=== PATIENT | male | born 1965 | race Caucasian/White ===

== ENCOUNTER 2018-01-09 12:58 | Emergency (ER) | END 2018-01-09 15:54 | disposition home or self-care (01) ==

== ENCOUNTER 2018-03-25 01:35 | Emergency (ER) | END 2018-03-25 05:41 | disposition home or self-care (01) ==

== ENCOUNTER 2018-04-02 17:29 | Emergency (ER) | payer OTHER ==
[~2018-04-02] VITALS: Ht 167.6 cm; Wt 82.7 kg
[~2018-04-02 17:29] MED LIST: IBUP200C11 PO
[2018-04-02 17:31] VITALS: Ht 167.6 cm; Wt 82.7 kg
[2018-04-02] MEDS ORDERED: HYDR25TA6 PO (18:08)
[2018-04-02] MEDS ORDERED: NICARDipine HCL 30 MG CAPSULE PO ONE (18:30)
[2018-04-02 19:44] VITALS: BP 162/85; PULSE 86; RESP 16
--- NOTE | 2018-04-02 20:26 | ERD ---
ER Documentation Chief Complaint Chief Complaint Patient here for suture removal HPI Patient is a 52-year-old male with hypertension who presents for suture removal. The patient has a laceration to his face and right third finger which were repaired 8 days ago. He has high blood pressure but no symptoms. He said that he knows he has high blood pressure but is not on any medications. He does not currently have a primary doctor. He has had no fevers or discharge from the wounds. ROS All systems reviewed and are negative except as per history of present illness. Medications Home Meds Active Scripts Hydrochlorothiazide* (Hydrochlorothiazide*) 25 Mg Tab, 25 MG PO DAILY, #30 TAB Prov:ARI STONE MD 04/02/18 Reported Medications Ibuprofen* (Advil*) 200 Mg Capsule, 200 MG PO Q6H PRN for PAIN, CAP 03/25/18 Allergies Allergies: Coded Allergies: No Known Allergy (Unverified , 01/09/18) PMhx/Soc History of Surgery: No Hx Neurological Disorder: No Hx Respiratory Disorders: No Hx Cardiac Disorders: Yes (Hypertension) Hx Psychiatric Problems: No Hx Miscellaneous Medical Probl: No Hx Alcohol Use: Yes (Daily heavy use) Hx Substance Use: No Hx Tobacco Use: No Smoking Status: Unknown if ever smoked FmHx Family History: No diabetes Physical Exam Vitals Vital Signs Date Temp Pulse Resp B/P (MAP) Pulse Ox O2 O2 Flow FiO2 Time Delivery Rate 04/02/18 98.4 86 16 162/85 100 Room Air 19:44 (110) 04/02/18 98.1 83 18 209/90 100 Room Air 18:30 (129) 04/02/18 99.4 76 20 249/116 98 17:31 (160) Physical Exam Const: No acute distress Head: Atraumatic Eyes: Normal Conjunctiva ENT: Normal External Ears, Nose and Mouth. Neck: Full range of motion. No meningismus. Resp: Clear to auscultation bilaterally Cardio: Regular rate and rhythm, no murmurs Abd: Soft, non tender, non distended. Normal bowel sounds Skin: Incision to left face and right hand are clean, dry, and intact without infection Back: No midline or flank tenderness Ext: No cyanosis, or edema Neur: Awake and alert Psych: Normal Mood and Affect Results 24 hrs Current Medications Medications Dose Sig/Lamar Start Time Status Last (Trade) Ordered Route PRN Stop Time Admin Dose Reason Admin Nicardipine 30 mg ONCE ONCE 04/02/18 DC 04/02/18 HCl PO 18:30 18:30 (Cardene) 04/02/18 18:31 Procedures/MDM Suture Removal by me: Sutures removed with tweezers and scissors without incident. Wound shows no evidence of infection, foreign body, neurologic injury, vascular injury, open joint or tendon laceration. Patient to follow up PRN. Patient was given Cardene by mouth for elevated blood pressure which is asymptomatic. The patient will be started on hydrochlorothiazide 25 mg daily but will need to follow-up with a primary doctor for blood pressure recheck. I will give him a list of the local clinics as he does not currently have a primary doctor. He can return for any worsening symptoms. Departure Diagnosis: Primary Impression: HTN (hypertension) Hypertension type: essential hypertension Qualified Codes: I10 - Essential (primary) hypertension Additional Impression: Encounter for removal of sutures Condition: Fair Patient Instructions: High Blood Pressure (Hypertension), Suture Removal, No Complication [facility] Usted se rome hecho un examen mdico de control que le indica que no est en arun condicin que requiera tratamiento urgente en el Departamento de Emergencia. Un estudio ms profundo y el tratamiento de pena condicin pueden esperar sin ningn riesgo hasta que usted sea atendida/o en el consultorio de pena mdico o arun clnica. Es responsabilidad suya arreglar arun sarath para el seguimiento del anselmo. MANEJO DE CONDICIONES NO URGENTES EN EL FUTURO 1) Si usted tiene un mdico de atencin primaria: Usted debera llamar a pena mdico de atencin primaria antes de venir al departamento de emergencia. Despus de las horas de consultorio, pena doctor o pena asociado/a est disponible por telfono. El mdico o enfermero de pk en el servicio telefnico puede asesorarle por maximo medio para atender el problema, o anselmo contrario se puede programar arun sarath. 2) Si usted no tiene un mdico de atencin primaria: Llame al mdico o clnica de referencia que aparece abajo miguel las horas de consultorio para hacer arun sarath para que le vean. CLINICAS: [place] [address] [phone] [facility] [phone] [facility] [phone] [place] [address] [phone] [place] [address] [phone] [facility] [phone] [address] Additional Instructions: Llame al doctor MAANA y jen arun SARATH PARA DENTRO DE 1-2 REYES.Dgale a la secretaria que nosotros le instruimos hacer esta sarath.Avise o llame si pena c ondicin se empeora antes de la sarath. Regresa aqui si peor o no mejor. ARI STONE MD Apr 02, 2018 20:26
== END 2018-04-02 19:44 | disposition home or self-care (01) ==
LOC: E/R 17:29
DX: I10 Essential (primary) hypertension (principal)
CPT/HCPCS: Z7502; Z7610; 99283